=== PATIENT | male | born 1995 | race Hispanic/Latino ===

== ENCOUNTER 2020-10-24 10:32 | Emergency (ER) | payer SELFPAY ==
[2020-10-24] MEDS ORDERED: METHYLPREDNISOLONE SOD SUCC 125MG/2ML VIAL ONE (11:10)
[2020-10-25] MEDS ORDERED: METHYLPREDNISOLONE SOD SUCC 125MG/2ML VIAL ONE
[2020-10-25] MEDS ORDERED: FAMOTIDINE/PF 20 MG/2 ML VIAL IV ONE (00:02)
[2020-10-25] MEDS ORDERED: DiphenhydrAMINE HCL 50 MG/ML VIAL ONE (00:03)
== END 2020-10-24 11:48 | disposition home or self-care (01) ==
LOC: EDH 10:32
DX: M94.0 Chondrocostal junction syndrome [Tietze] (principal)
CPT/HCPCS: 36415; 96372; 99283; J2930; J1200; J3490